=== PATIENT | male | born 1995 | race Caucasian/White ===

== ENCOUNTER 2018-06-22 22:22 | Emergency (ER) | payer SELFPAY ==
--- NOTE | 2018-06-22 23:02 | RAD ---
TWO VIEWS LEFT SHOULDER 06/22/18 COMPARISON: None. HISTORY: Ryan a pop in his shoulder when rolling on the floor. History of shoulder dislocation. FINDINGS: Two views of the left shoulder shows anterior dislocation of the glenohumeral joint. No fracture is s een. The visualized left thorax is unremarkable. IMPRESSION: Anterior left shoulder dislocation. POS: [facility]
[2018-06-22] MEDS ORDERED: Morphine 4 MG/ML VIAL ONE (23:19)
[2018-06-22] MEDS ORDERED: Midazolam HCl 5 mg/ml Vial ONE (23:20)
--- NOTE | 2018-06-22 23:54 | RAD ---
TWO VIEWS OF THE LEFT SHOULDER: 06/22/18 COMPARISON: 06/22/18 at 10:42 p.m. HISTORY: Reduction of shoulder dislocation. FINDINGS: Two views of the left shoulder shows reduction of the previously seen dislocation. No fracture is see n. The visualized left thorax is unremarkable. IMPRESSION: Reduction of left shoulder dislocation. POS: [facility]
== END 2018-06-23 00:10 | disposition home or self-care (01) ==
LOC: SCSER 22:22
DX: S43.015A Anterior dislocation of left humerus, initial encounter (principal); S44.32XA Injury of axillary nerve, left arm, initial encounter; X50.1XXA Overexertion from prolonged static or awkward postures, initial encounter
CPT/HCPCS: 23650; 99152; J2250; J2270